=== PATIENT | male | born 2000 | race African-American/Black ===

== ENCOUNTER 2024-05-24 00:37 | Inpatient (IN) | payer OTHER ==
[~2024-05-24] VITALS: Ht 188 cm; Wt 78.9 kg
[2024-05-24] MEDS ORDERED: HALOPERIDOL LACTATE 5 MG/ML VIAL ONE (02:15)
[2024-05-24] MEDS ORDERED: LORazepam 2 MG/ML VIAL ONE (02:15)
[2024-05-24] MEDS ORDERED: DiphenhydrAMINE HCL 50 MG/ML VIAL ONE (02:15)
[2024-05-24] MEDS: DiphenhydrAMINE HCL 50 MG/ML VIAL IM ONE ×3 (02:25→21:31)
[2024-05-24] MEDS: HALOPERIDOL LACTATE 5 MG/ML VIAL IM ONE ×3 (02:25→21:32)
[2024-05-24] MEDS: LORazepam 2 MG/ML VIAL IM ONE ×4 (02:25→21:31)
[2024-05-24 02:56] LABS: COVID AG,FIA SOURCE NASAL SWAB
[2024-05-24 03:04] LABS: SARS-COV2 (COVID) ANTIGEN,FIA Negative (Negative)
[2024-05-24] MEDS: ZIPRASIDONE MESYLATE 20 MG/VIAL IM ONE (06:57)
[2024-05-24 07:18] VITALS: O2SAT 99
[2024-05-24 09:58] VITALS: BP 100/48; PULSE 96; RESP 16; TEMP 97.6; O2SAT 99
[2024-05-24] MEDS ORDERED: INFLUENZA VIRUS VACCINE TVS (6MO+) 2024-25/PF 45 MCG/0.5 ML SYRINGE IM. ONE (10:15)
[2024-05-24] MEDS ORDERED: ACETAMINOPHEN 325 MG TABLET PO PRN (17:00)
[2024-05-24] MEDS ORDERED: LOPERAMIDE HCL 2 MG CAPSULE PO PRN (17:00)
[2024-05-24] MEDS ORDERED: PETROLATUM,WHITE 28 GM JELLY TP PRN (17:00)
[2024-05-24] MEDS ORDERED: ONDANSETRON 4 MG TABLET PO PRN (17:00)
[2024-05-24] MEDS ORDERED: DOCUSATE SODIUM 100 MG CAPSULE PO PRN (17:00)
[2024-05-24] MEDS ORDERED: NICOTINE 14 MG/24 HOUR PATCH TD PRN (17:00)
[2024-05-24] MEDS ORDERED: CloNIDine HCL 0.1 MG TABLET PO PRN (17:00)
[2024-05-24] MEDS ORDERED: MAG HYDROX/ALUMINUM HYD/SIMETH ES 30 ML SUSPENSION UDCUP PO PRN (17:00)
[2024-05-24] MEDS ORDERED: ALBUTEROL SULFATE HFA 90 MCG/PUFF 8 GM INHALER IH PRN (17:00)
[2024-05-24] MEDS ORDERED: GuaiFENesin/D-METHORPHAN [SUGAR-FREE] 200-20MG/10 ML SYRUP UDCUP PO PRN (17:00)
[2024-05-24] MEDS ORDERED: MAGNESIUM HYDROXIDE SUSPENSION 30 ML UDCUP PO PRN (17:00)
[2024-05-24] MEDS ORDERED: QUET25TA PO (17:35)
[2024-05-24] MEDS ORDERED: BUSP15 PO (17:35)
[2024-05-24] MEDS ORDERED: MIRT-89 PO (17:36)
[2024-05-24 19:03] VITALS: RESP 17
[2024-05-24] MEDS: IBUPROFEN 400 MG TABLET PO PRN (19:03)
[2024-05-24] MEDS: HALOPERIDOL 5 MG TABLET PO PRN (20:23)
[2024-05-24] MEDS: MIRTAZAPINE 15 MG TABLET PO SCH (20:23)
[2024-05-24] MEDS: QUEtiapine FUMARATE 200 MG TABLET PO SCH (20:23)
[2024-05-24] MEDS: ZOLPIDEM TARTRATE 10 MG TABLET PO PRN (20:24)
[2024-05-25] MEDS: LORazepam 2 MG TABLET PO PRN (10:27)
[2024-05-25] MEDS ORDERED: HALOPERIDOL LACTATE 5 MG/ML VIAL ONE (10:42)
[2024-05-25] MEDS ORDERED: LORazepam 2 MG/ML VIAL ONE (10:42)
[2024-05-25] MEDS ORDERED: DiphenhydrAMINE HCL 50 MG/ML VIAL ONE (10:43)
[2024-05-25] MEDS: DiphenhydrAMINE HCL 50 MG/ML VIAL IM ONE (11:28)
[2024-05-25] MEDS: HALOPERIDOL LACTATE 5 MG/ML VIAL IM ONE (11:29)
[2024-05-25] MEDS: LORazepam 2 MG/ML VIAL IM ONE ×2 (11:29→19:03)
[2024-05-25 12:35] VITALS: BP 130/80; PULSE 111; RESP 17; TEMP 98.2; O2SAT 97
[2024-05-25] MEDS ORDERED: ZIPRASIDONE MESYLATE 20 MG/VIAL IM ONE (13:00)
[2024-05-25] MEDS: ZIPRASIDONE MESYLATE 20 MG/VIAL IM ONE (14:13)
[2024-05-25] MEDS: BusPIRone HCL 15 MG TABLET PO SCH (17:00)
[2024-05-25] MEDS ORDERED: ChlorproMAZINE HCL 50 MG/2 ML AMP ONE (18:10)
[2024-05-25] MEDS: ChlorproMAZINE HCL 50 MG/2 ML AMP IM ONE (19:03)
[2024-05-26 08:03] VITALS: BP 131/85; PULSE 97; RESP 17; TEMP 97.7; O2SAT 98
[2024-05-26] MEDS: QUEtiapine FUMARATE 200 MG TABLET PO SCH (11:00)
[2024-05-26] MEDS ORDERED: DiphenhydrAMINE HCL 50 MG/ML VIAL ONE (12:00)
[2024-05-26] MEDS ORDERED: LORazepam 2 MG/ML VIAL ONE (12:00)
[2024-05-26] MEDS: LORazepam 2 MG/ML VIAL IM ONE (12:15)
[2024-05-26] MEDS: DiphenhydrAMINE HCL 50 MG/ML VIAL IM ONE (12:15)
[2024-05-26] MEDS: HALOPERIDOL LACTATE 5 MG/ML VIAL IM ONE (12:16)
[2024-05-26] MEDS: QUEtiapine FUMARATE 200 MG TABLET PO ONE (16:36)
[2024-05-26 20:54] VITALS: RESP 18
[2024-05-27 08:05] VITALS: BP 144/86; PULSE 87; RESP 16; TEMP 96.9
[2024-05-27] MEDS ORDERED: DiphenhydrAMINE HCL 50 MG/ML VIAL ONE (10:54)
[2024-05-27] MEDS ORDERED: LORazepam 2 MG/ML VIAL ONE (10:54)
[2024-05-27] MEDS ORDERED: HALOPERIDOL LACTATE 5 MG/ML VIAL ONE (10:55)
[2024-05-27] MEDS: LORazepam 2 MG/ML VIAL IM ONE (11:00)
[2024-05-27] MEDS: DiphenhydrAMINE HCL 50 MG/ML VIAL IM ONE (11:00)
[2024-05-27] MEDS: HALOPERIDOL LACTATE 5 MG/ML VIAL IM ONE (11:00)
[2024-05-27 21:27] VITALS: TEMP 97.5
[2024-05-28 11:47] VITALS: RESP 18
[2024-05-28 14:23] VITALS: BP 136/84; PULSE 93; RESP 17; TEMP 97.6; O2SAT 99
[2024-05-28 20:42] VITALS: BP 144/69; PULSE 88; RESP 18; TEMP 97.2; O2SAT 97
[2024-05-29 08:16] VITALS: BP 134/83; PULSE 103; RESP 17; TEMP 97.3; O2SAT 96
[2024-05-29 09:02] LABS: HEMOGLOBIN A1C 5.2 % (3.8-5.6)
[2024-05-29 09:10] LABS: APPEARANCE,URINE CLEAR (CLEAR); BILIRUBIN,URINE NEGATIVE (NEGATIVE); COLOR,URINE LIGHT YELLOW (YELLOW); GLUCOSE, URINE (UA) NEGATIVE (NEGATIVE); KETONES,URINE NEGATIVE (NEGATIVE); LEUKOCYTE ESTERASE ,URINE NEGATIVE (NEGATIVE); NITRATE,URINE NEGATIVE (NEGATIVE); OCCULT BLOOD,URINE NEGATIVE (NEGATIVE); PH,URINE 6.5 (5.0-8.0); PH,URINE DRUG SCREEN 6.5 (5.0-8.0); PROTEIN,URINE NEGATIVE (NEGATIVE); SPECIFIC GRAVITIY, URINE 1.024 (1.003-1.030); UROBILINOGEN,URINE <=1.0 mg/dL (<=1.0)
[2024-05-29 09:17] LABS: ALCOHOL, URINE DRUG SCREEN NEGATIVE (NEGATIVE); AMPHET/METH SCREEN,URINE NEGATIVE (NEGATIVE); BARBITURATE SCREEN, URINE NEGATIVE (NEGATIVE); BENZODIAZEPINES SCREEN,URINE POSITIVE (NEGATIVE); CANNABINOID SCREEN,URINE POSITIVE (NEGATIVE); COCAINE SCREEN,URINE NEGATIVE (NEGATIVE); METHADONE SCREEN, URINE NEGATIVE (NEGATIVE); OPIATE SCREEN,URINE NEGATIVE (NEGATIVE); PHENCYCLIDINE SCREEN,URINE NEGATIVE (NEGATIVE)
[2024-05-29 09:19] LABS: CHOL/HDL RATIO 3.5 (4.2-7.3); FREE T4 (FREE THYROXINE) 0.92 ng/dL (0.76-1.46); THYROID STIMULATING HORMONE 0.39 uIU/mL (0.36-3.74)
[2024-05-29 20:42] VITALS: RESP 20
[2024-05-29] MEDS: QUEtiapine FUMARATE 300 MG TABLET PO SCH (21:40)
[2024-05-30 08:43] VITALS: BP 152/76; PULSE 87; RESP 18; TEMP 97.6; O2SAT 99
[2024-05-30] MEDS ORDERED: QUET200T PO (17:39)
[2024-05-30] MEDS ORDERED: QUET300T2 PO (17:40)
== END 2024-05-30 21:37 | disposition left against medical advice (07) | DRG 885 ==
LOC: EMS 00:37 → B3A 08:14
PROVIDERS: ADMIT Psychiatry & Neurology Child & Adolescent Psychiatry; ATTEND Psychiatry & Neurology Child & Adolescent Psychiatry
PROC: GZ56ZZZ Individual Psychotherapy, Supportive (ICD-10-PCS; principal; 2024-05-24)
DX: F25.9 Schizoaffective disorder, unspecified (principal); F32.A Depression, unspecified; F41.9 Anxiety disorder, unspecified; Z20.822 Contact with and (suspected) exposure to COVID-19; G47.00 Insomnia, unspecified; I10 Essential (primary) hypertension; R00.0 Tachycardia, unspecified; Z53.29 Procedure and treatment not carried out because of patient's decision for other reasons; Z79.899 Other long term (current) drug therapy; Z91.148 Patient's other noncompliance with medication regimen for other reason; R45.850 Homicidal ideations
CPT/HCPCS: 80061; 80307; 81003; 83036; 84439; 84443; 90686; 99291; J1200; J1630; J2060; J3230; J3486